=== PATIENT | male | born 1990 | race Hispanic/Latino ===

== ENCOUNTER 2018-01-10 11:12 | Emergency (ER) | payer OTHER ==
[2018-01-10] MEDS ORDERED: KETOROLAC TROMETHAMINE 30MG/ML ONE (11:45)
[2018-01-10 11:49] LABS: BASOPHILS % (AUTO) 0.4 % (0.0-5.0); HEMATOCRIT 47.8 % (42-54); LYMPHOCYTES % (AUTO) 6.3 % (21.0-51.0); MEAN CORPUSCULAR HEMOGLOBIN 29.3 pg (27.0-33.0); MEAN CORPUSCULAR HGB CONC 33.2 g/dL (32.0-36.0); MEAN CORPUSCULAR VOLUME 88.2 fL (79-99); MONOCYTES % (AUTO) 5.8 % (3.0-13.0); NEUTROPHILS % (AUTO) 87.5 % (40.0-77.0); NUCLEATED RED BLOOD CELLS 0.1 % (0.0-0.19); PLATELET COUNT (AUTO) 248 K/uL (130-400); RED BLOOD CELL COUNT(AUTO) 5.42 MIL/uL (4.50-6.20); RED CELL DISTRIBUTION WIDTH 13.6 % (11.0-15.5); WHITE BLOOD COUNT (AUTO) 18.3 K/uL (4.8-10.8)
[2018-01-10 12:04] LABS: POTASSIUM 4.3 mmol/L (3.5-5.1)
[2018-01-10 12:12] LABS: ALBUMIN 3.7 g/dL (3.5-5.0); BILIRUBIN,TOTAL 0.7 mg/dL (0.2-1.0); TOTAL PROTEIN, SERUM 8.1 g/dL (6.0-8.3)
[2018-01-10] MEDS ORDERED: METRONIDAZOLE 500 MG TABLET ONE (12:24)
[2018-01-10] MEDS ORDERED: LEVOFLOXACIN 500 MG TABLET ONE (12:27)
[2018-01-10] MEDS ORDERED: ONDANSETRON HCL 4 MG/2 ML VIAL ONE (12:32)
[2018-01-10] MEDS ORDERED: MORPHINE SULFATE 4 MG/1ML SYG ONE (12:32)
[2018-01-10 12:46] LABS: APPEARANCE,URINE CLEAR (CLEAR); BILIRUBIN,URINE MODERATE (NEGATIVE); COLOR,URINE YELLOW (YELLOW); GLUCOSE, URINE (UA) NEGATIVE (NEGATIVE); KETONES,URINE >=80 mg/dL (NEGATIVE); LEUKOCYTE ESTERASE ,URINE NEGATIVE (NEGATIVE); NITRATE,URINE NEGATIVE (NEGATIVE); OCCULT BLOOD,URINE NEGATIVE (NEGATIVE); PROTEIN,URINE NEGATIVE (NEGATIVE); UROBILINOGEN,URINE 0.2 mg/dL (0.2-1.0)
[2018-01-10 12:54] LABS: BACTERIA,URINE None Seen /HPF (None Seen); RBC,URINE None Seen /HPF (0-1); SQUAMOUS EPITHELIAL CELL,UR Rare /LPF (0-2); WBC,URINE None Seen /HPF (0-1)
== END 2018-01-10 13:14 | disposition home or self-care (01) ==
LOC: EDH 11:12
DX: K57.32 Diverticulitis of large intestine without perforation or abscess without bleeding (principal); R11.0 Nausea; Z72.0 Tobacco use
CPT/HCPCS: 36415; 74176; 80053; 81001; 85025; 96374; 96375; 99285; J1885; J2270; J2405